=== PATIENT | male | born 1955 | race Two or more races ===

== ENCOUNTER 2024-09-11 09:12 | Emergency (ER) | payer MEDICARE, MEDICAID, SELFPAY ==
[2024-09-11 09:18] VITALS: BP 113/76; PULSE 63; RESP 16; TEMP 36.4; O2SAT 96; BMI 27.8
--- NOTE | 2024-09-11 09:38 | EDNOTE_ITS ---
ED Abdominal Pain RME/HPI General Chief Complaint: Abdominal Pain Stated complaint: ABD PAIN AND DIARRHEA Time seen by provider: 09/11/24 09:21 Arrival date/time: 09/11/24 09:12 69-year-old male with no known medical history presents to the emergency room with a chief complaint of lower abdominal cramping and diarrhea x 4 days. Source: patient Mode of arrival: ambulatory Limitations: no limitations Related Data Home Medications ?Medication ?Instructions ?Recorded ?Confirmed cetirizine 10 mg tablet (Zyrtec) 10 mg PO QDAY 2 06/30/21 Previous Rx's ?Medication ?Instructions ?Recorded triamcinolone acetonide 0.1 % 1 applic topical BID #60 mL 06/30/21 lotion triamcinolone acetonide 0.5 % 1 applic topical BID PRN itching 09/02/21 topical cream #30 grams cetirizine 10 mg capsule (Zyrtec) 10 mg PO QDAY #20 ca ps 06/24/22 Allergies Allergy/AdvReac Type Severity Reaction Status Date / Time No Known Allergies Allergy Verified 09/11/24 09:13 Review of Systems Review of Systems Systems Reviewed: All systems reviewed, normal except as documented Constitutional Constitutional: Reports system reviewed and no additional complaints, except as documented, Denies fatigue, Denies fever(s), Denies headache(s) and Denies weakness Eyes Eyes: Reports system reviewed and no additional complaints, except as d ocumented, Denies blurry vision and Denies change in vision ENT Ears, Nose, Mouth, and Throat: Reports system reviewed and no additional complaints, except as documented, Denies otalgia, Denies headache(s), Denies nasal congestion, Denies throat swelling and Denies vertigo Cardiovascular Cardiovascular: Reports system reviewed and no additional complaints, except as documented, Denies chest pain, Denies dyspnea and Denies dyspnea on exertion Respiratory Respiratory: Reports system reviewed and no additional complaints, except as documented, Denies chest congestion, Denies cough, Denies dyspnea, Denies dyspnea on exertion and Denies wheezing Gastrointestinal Gastrointestinal: Reports system reviewed and no additional complaints, except as documented, Reports abdominal pain, Reports cramping, Reports diarrhea, Denies nausea and Denies vomiting Genitourinary Genitourinary: Reports system reviewed and no additional complaints, except as documented, Denies dysuria and Denies hematuria Musculoskeletal Musculoskeletal: Reports system reviewed and no additional complaints, except as documented and Denies back pain Integumentary/Breasts Skin/Breast: Reports system reviewed and no additional complaints, except as documented and Denies wounds Neurologic Neurologic: Reports system reviewed and no additional complaints, except as documented, Denies confusion, Denies headache(s), Denies lack of coordination, Denies vertigo and Denies weakness Psychiatric Psychiatric: Reports system reviewed and no additional complaints, except as documented, Denies anxiety, Denies confusion, Denies depression, Denies paranoia, Denies suicidal ideation and Denies tactile hallucinations Endocrine Endocrine: Reports system reviewed and no additional complaints, except as documented and Denies fatigue Hematologic/Lymphatic Hematologic/Lymphatic: Reports system reviewed and no additional complaints, except as documented and Denies lymphadenopathy Allergic/Immunologic Allergic/Immunologic: Reports system reviewed and no additional complaints, except as documented, Denies throat swelling, Denies urticaria and Denies wheezing Past Medical History Past Medical History CARDIAC: Negative Congestive Heart Failure RESPIRATORY: Negative Chronic Obstructive Pulmonary Disease (COPD) GENITOURINARY: Negative Renal Disease ENDOCRINE: Negative Diabetes Mellitus Type 1 or Diabetes Mellitus Type 2 Social History SMOKING STATUS: Never smoker ED Exam General Limitations: Present no limitations General appearance: Present alert and in no apparent distress Head Head exam: Present atraumatic Eye Eye exam: Present normal appearance, PERRL and EOMI ENT ENT exam: Present normal exam, normal oropharynx and mucous membranes moist Neck Neck exam: Present normal inspection, full ROM and trachea midline Chest Chest inspection: Present normal inspection and symmetric chest wall rise Respiratory Respiratory exam: Present normal lung sounds bilaterally Cardiovascular Cardiovascular exam: Present regular rate, normal rhythm and normal heart sounds Abdominal Exam Abdominal exam: Present soft and normal bowel sounds; Absent distention, tenderness, guarding, rebound or rigidity Abdominal tenderness: Present mild; Absent RUQ, RLQ or LLQ Extremities Exam Extremities exam: Present normal inspection and full ROM Back Exam Back exam: Present normal inspection and full ROM Neurological Exam Neurological exam: Present alert, oriented X3 and CN II-XII intact Psychiatric Psychiatric exam: Present normal affect and normal mood Skin Skin exam: Present warm, dry, intact and normal color Course Quality Measures none Orders Category Date Time Status CBC Stat Lab 09/11/24 09:49 Completed CMP [Comprehensive Metabolic Panel] Stat Lab 09/11/24 09:49 Completed Lipase Stat Lab 09/11/24 09:49 Completed UA, C/S IF [Urinalysis, C/S if Indicated] Stat Lab 09/11/24 09:45 Completed Vital Signs Vital signs: Vital Signs Temperature 97.6 F 09/11/24 09:18 Pulse Rate 63 09/11/24 09:18 Respiratory Rate 16 09/11/24 09:18 Blood Pressure 113/76 09/11/24 09:18 Pulse Oximetry (%) 96 09/11/24 09:18 Oxygen Delivery Method Room Air 09/11/24 09:18 O2 saturation 96% within normal limit Abdominal Pain MDM MDM Narrative MDM Narrative:: 69-year-old male with no known medical history presents to the emergency room with a chief complaint of lower abdominal cramping and diarrhea x 4 days. Patient is hemodynamically stable and in no apparent distress. There is no tachycardia, tachypnea, and the patient is afebrile. Physical examination shows some mild abdominal cramping. Patient states this pain is due to his diarrhea that has been happening for the last 4 days. There is no right lower quadrant abdominal tenderness or right upper quadrant abdominal tenderness. CBC CMP are within normal limits. Urinalysis is within normal limits Patient was discharged and educated to follow-up with primary care provider in the next 24 to 48 hours and return to the emergency room for any evidence of worsening signs or symptoms Patient data External records reviewed:: [facility] previous records Clinical information provided by:: patient Social determinants that could affect healthcare access:: none Patient has the following chronic illnesses:: No chronic illness How is presenting disease/condition affected by chronic disease/condition?: no chronic disease Evaluation data The following diagnostics were reviewed and interpreted by me:: lab results and radiology exam(s) Lab and/or radiology exams considered but not ordered:: Labs and radiology exams considered and ordered Interpretation Summary: N/A Medications / Prescriptions Medications or Prescriptions considered but not ordered:: Medication not given Medication administrations:: Medication not given Consultations Consultation(s) initiated? (list below): No Diagnosis Differential diagnosis abdominal pain: abdominal pain and gastroenteritis Most likely diagnosis given after review of the tests above:: Gastroenteritis Admission Indicated Admission indicated?: not indicated Admission Request Was there a request for admission?: No Disposition Plan Disposition Plan: Discharge Discharge Attestation Discharge Attestation: The patient and all family members were given an opportunity to ask questions and understood the discharge instructions. Discharge instructions specifically effects, indications for sooner follow up or return to the emergency department, and the expected course of current diagnosis. Patient condition: Stable Discharge Plan Plan Patient Disposition: HOME (Self Care) Disposition Comment: Stable Prescriptions/Referrals Prescriptions/Med Rec: No Action triamcinolone acetonide 0.5 % cream 1 applic topical BID PRN (Reason: itching) Qty: 30 0RF triamcinolone acetonide 0.1 % lotion 1 applic topical BID Qty: 60 0RF cetirizine [Zyrtec] 10 mg Tablet 10 mg PO QDAY Zyrtec 10 mg capsule 10 mg PO QDAY Qty: 20 0RF Referrals: Jaci Valle MD [Primary Care Provider] - In 1 week Problem List Clinical Impression: Gastroenteritis Patient/Caregiver Discharge Instructions Education Materials: Understanding Colitis, ED Gastroenteritis, Noninfectious Additional Instructions: Por favor, consulte con huang m?dico de cabecera en las pr?ximas 24 a 48 horas. Huang an?lisis de betzaida carole negativo para cualquier infecci?n aguda o signos de deshidrataci?n. Por favor, consulte con huang m?dico de cabecera para el manejo de huang diarrea. Contin?e tomando la medicaci?n recetada por huang m?dico de cabecera. Si observa cualquier signo de empeoramiento de los signos o s?ntomas, acuda a urgencias de inmediato. Print Language: Upper Sorbian Stand Alone Forms: Erika Award Info., Patient Portal Info Letter PA/MAINS AND SERVICE SUPERVISOR Supervising Physician PA/MAINS AND SERVICE SUPERVISOR Supervising Physician: Dr. Tomlinson
[2024-09-11 09:56] LABS: Basophils % (Auto) 1 % (0-2.5); Eosinophils # (Auto) 0.3 Thou/mm3 (0.0-0.5); Eosinophils % (Auto) 3 % (0-10); Hematocrit 40.3 % (41.0-53.0); Hemoglobin 13.6 g/dL (13.5-16.0); Immature Granulocytes % (Auto) 1 % (0-0); Immature Granulocytes Auto 0.05 Thou/mm3 (0.00-0.00); Lymphocytes % (Auto) 26 % (10-50); Mean Corpuscular HGB Conc 33.7 g/dl (31.0-37.0); Mean Corpuscular Hemoglobin 29.1 pg (25.0-35.0); Mean Corpuscular Volume 86 fL (80-100); Monocytes # (Auto) 0.7 Thou/mm3 (0.0-0.8); Monocytes % (Auto) 9 % (0-12); Neutrophils # (Auto) 4.7 Thou/mm3 (1.8-7.7); Neutrophils % (Auto) 61 % (37-80); Nucleated Red Blood Cell % 0 /100 WBC (0); Platelet Count 240 Thou/mm3 (140-440); RDW Standard Deviation 41.8 fL (35.1-43.9); Red Blood Count 4.68 Miln/mm3 (4.50-5.90); White Blood Count 7.7 Thou/mm3 (3.8-10.6)
[2024-09-11 10:07] LABS: Collection Type, Urine Clean Catch
[2024-09-11 10:30] LABS: Alanine Aminotransferase 23 U/L (10-49); Albumin, Serum 4.5 gm/dL (3.4-4.8); Albumin/Globulin Ratio 1.8 (1.2-2.2); Alkaline Phosphatase 42 U/L (46-116); Anion Gap 9 (7-16); Aspartate Amino Transferase 15 U/L (0-34); BUN/Creatinine Ratio 17 Ratio (12-20); Bilirubin,Total 0.7 mg/dL (0.3-1.2); Blood Urea Nitrogen 17 mg/dL (9-23); Calcium 9.6 mg/dL (8.3-10.6); Calcium (Corrected) 9.6 mg/dL (8.5-10.1); Carbon Dioxide 24.2 mMol/L (20.0-31.0); Chloride 108 mMol/L (98-107); Globulin 2.5 gm/dL (2.3-3.5); Glucose 94 mg/dL (74-106); Lipase 29 U/L (12-53); Osmolality,Calculated 282 (275-295); Sodium 141 mMol/L (136-145); eGFR > 60 See Note
[2024-09-11 11:09] LABS: Bilirubin,Urine Negative (Negative); Blood,Urine Negative (Negative); Clarity,Urine Clear (Clear/Hazy); Color,Urine Lt-Yellow (Lt Yel-Yel); Culture Indicated,Urine Not Indicated; Glucose, Urine Negative (Negative); Ketones,Urine Negative (Negative); Leukocyte Esterase,Urine Negative (Negative); Nitrite,Urine Negative (Negative); PH,Urine 5.5 (5.0-7.0); Protein,Urine Negative (Neg - Trace); RBC,Urine 2 /hpf (0-3); Specific Gravity,Urine 1.025 (1.001-1.035); Squamous Epithelial Cell,Urine < 1 /hpf (0-5); Uric Acid Crystals,Urine 1+; Urobilinogen,Urine Negative mg/dL (0.0-1.0); WBC,Urine < 1 /hpf (0-5)
[2024-09-11 11:23] VITALS: BP 113/77; PULSE 63; RESP 17; TEMP 36.5; O2SAT 97
== END 2024-09-11 11:26 | disposition home or self-care (01) ==
PROVIDERS: Nurse Practitioner Family; Emergency Provider Emergency Medicine; PCP Family Medicine
DX: K52.9 Noninfective gastroenteritis and colitis, unspecified (principal)
CPT/HCPCS: 36415; 80053; 81001; 83690; 85025; 99283

== ENCOUNTER 2025-02-11 07:42 | Emergency (ER) | payer MEDICARE, MEDICAID, SELFPAY ==
[2025-02-11 08:02] VITALS: BP 114/74; PULSE 65; RESP 16; TEMP 36.5; O2SAT 98; BMI 27.6
--- NOTE | 2025-02-11 08:18 | PD.EDRME ---
Rapid Medical Screening Exam E Arrival date/time: 02/11/25 07:42 This is a 69-year-old male that comes into the emergency room with complaints of pain with urination, difficulty urination, urgency, frequency, and oliguria. Patient states that he was visiting [place] recently and became very ill there. Patient was seen by And was told that he had some stones in his bladder. Patient was told that his prostate is actually in good shape per ultrasound that was done in [place]. Patient states that he was told he needed surgery to have the stones in his bladder removed. Patient denies past medical history. Patient denies fever, nausea, vomiting, diarrhea,. Patient complains of mild lower abdominal pain. Patient denies back pain. Patient states he was given some medicine to help with the pain but it did not help him. I have greeted and performed a focused initial assessment of this patient. Initial appropriate labs ordered at this time. A comprehensive ED assessment and evaluation of the patient and analysis of all test and completion of medical decision making process will be conducted by additional ED provider. Chief Complaint: Urogenital-Male Time Seen by Provider: 02/11/25 07:57 Vital signs: Vital Signs Temperature 97.7 F 02/11/25 08:02 Pulse Rate 65 02/11/25 08:02 Respiratory Rate 16 02/11/25 08:02 Blood Pressure 114/74 02/11/25 08:02 Pulse Oximetry (%) 98 02/11/25 08:02 Oxygen Delivery Method Room Air 02/11/25 08:02
[2025-02-11 08:49] LABS: Collection Type, Urine Voided
[2025-02-11 08:58] LABS: Basophils # (Auto) 0.0 Thou/mm3 (0.0-0.2); Basophils % (Auto) 1 % (0-2.5); Eosinophils # (Auto) 0.2 Thou/mm3 (0.0-0.5); Eosinophils % (Auto) 4 % (0-10); Hematocrit 41.1 % (41.0-53.0); Hemoglobin 13.6 g/dL (13.5-16.0); Immature Granulocytes Auto 0.02 Thou/mm3 (0.00-0.00); Lymphocytes # (Auto) 1.6 Thou/mm3 (1.0-4.8); Lymphocytes % (Auto) 30 % (10-50); Mean Corpuscular HGB Conc 33.1 g/dl (31.0-37.0); Mean Corpuscular Hemoglobin 28.9 pg (25.0-35.0); Mean Corpuscular Volume 87 fL (80-100); Monocytes # (Auto) 0.5 Thou/mm3 (0.0-0.8); Monocytes % (Auto) 8 % (0-12); Neutrophils # (Auto) 3.1 Thou/mm3 (1.8-7.7); Neutrophils % (Auto) 57 % (37-80); Nucleated Red Blood Cell # 0.00 Thou/mm3 (0.00-0.00); Nucleated Red Blood Cell % 0 /100 WBC (0); Platelet Count 240 Thou/mm3 (140-440); RDW Standard Deviation 43.5 fL (35.1-43.9); Red Blood Count 4.70 Miln/mm3 (4.50-5.90); White Blood Count 5.4 Thou/mm3 (3.8-10.6)
[2025-02-11 09:01] LABS: Bilirubin,Urine Negative (Negative); Blood,Urine Negative (Negative); Clarity,Urine Clear (Clear/Hazy); Color,Urine Lt-Yellow (Lt Yel-Yel); Culture Indicated,Urine Not Indicated; Glucose, Urine Negative (Negative); Ketones,Urine Negative (Negative); Leukocyte Esterase,Urine Negative (Negative); Nitrite,Urine Negative (Negative); PH,Urine 6.0 (5.0-7.0); Protein,Urine Negative (Neg - Trace); RBC,Urine 2 /hpf (0-3); Specific Gravity,Urine 1.019 (1.001-1.035); Squamous Epithelial Cell,Urine < 1 /hpf (0-5); Urobilinogen,Urine Negative mg/dL (0.0-1.0); WBC,Urine 3 /hpf (0-5)
[2025-02-11 09:15] LABS: Alanine Aminotransferase 14 U/L (10-49); Albumin, Serum 4.2 gm/dL (3.4-4.8); Albumin/Globulin Ratio 2.1 (1.2-2.2); Alkaline Phosphatase 40 U/L (46-116); Anion Gap 9 (7-16); Aspartate Amino Transferase 19 U/L (0-34); BUN/Creatinine Ratio 16 Ratio (12-20); Bilirubin,Total 0.3 mg/dL (0.3-1.2); Blood Urea Nitrogen 16 mg/dL (9-23); Calcium 9.4 mg/dL (8.3-10.6); Calcium (Corrected) 9.4 mg/dL (8.5-10.1); Carbon Dioxide 23.6 mMol/L (20.0-31.0); Chloride 109 mMol/L (98-107); Creatinine (Component) 1.0 mg/dL (0.6-1.3); Estimated Creatinine Clearance 69.3 mL/min (>60); Globulin 2.0 gm/dL (2.3-3.5); Glucose 102 mg/dL (74-106); Osmolality,Calculated 284 (275-295); Potassium 4.1 mMol/L (3.4-5.1); Sodium 142 mMol/L (136-145); Total Protein 6.2 gm/dL (5.7-8.2); eGFR > 60 See Note
--- NOTE | 2025-02-11 09:38 | EDNOTE_ITS ---
<Statement entered by Bryanna Laughlin MD - 02/27/25 06:32> I, Bryanna Laughlin MD, have reviewed the history, exam, and assessment of the patient. I have evaluated the patient independently and agree with the plan of care documented by [ ]. All diagnostic studies were reviewed and discussed. I confirm the diagnosis as documented by the Resident. I was present during the Medical Decision Making for this patient. The patient's plan of care was created between myself and the Resident and consistent with our discussion of the patient's case. ED General RME/HPI General Chief complaint: Urogenital-Male Stated complaint: Urinating small amount Time Seen by Provider: 02/11/25 07:57 Arrival date/time: 02/11/25 07:42 RME / HPI RME / HPI narrative: 02/11/25 07:42 This is a 69-year-old male that comes into the emergency room with complaints of pain with urination, difficulty urination, urgency, frequency, and oliguria. Patient states that he was visiting [place] recently and became very ill there. Patient was seen by And was told that he had some stones in his bladder. Patient was told that his prostate is actually in good shape per ultrasound that was done in [place]. Patient states that he was told he needed surgery to have the stones in his bladder removed. Patient denies past medical history. Patient denies fever, nausea, vomiting, diarrhea,. Patient complains of mild lower abdominal pain. Patient denies back pain. Patient states he was given some medicine to help with the pain but it did not help him. I have greeted and performed a focused initial assessment of this patient. Initial appropriate labs ordered at this time. A comprehensive ED assessment and evaluation of the patient and analysis of all test and completion of medical decision making process will be conducted by additional ED provider. 69-year-old male with past medical history of COPD comes into the ED with chief complaints of urinary hesitancy along with urinary frequency and some difficulty with urination sometimes. Patient states that he went to [place] 1 week ago and he was diagnosed with bladder stones and an enlarged prostate by ultrasound, but did not get treatment in [place] and came back to the [place]. Otherwise he denies having any fevers, chills, burning sensation urination, or chest pain or shortness of breath. Denies any drugs, alcohol, admits smoking Related Data Home Medications ?Medication ?Instructions ?Recorded ?Confirmed cetirizine 10 mg tablet (Zyrtec) 10 mg PO QDAY 2 06/30/21 Previous Rx's ?Medication ?Instructions ?Recorded triamcinolone acetonide 0.1 % 1 applic topical BID #60 mL 06/30/21 lotion triamcinolone acetonide 0.5 % 1 applic topical BID PRN itching 09/02/21 topical cream #30 grams cetirizine 10 mg capsule (Zyrtec) 10 mg PO QDAY #20 ca ps 06/24/22 Allergies Allergy/AdvReac Type Severity Reaction Status Date / Time No Known Allergies Allergy Verified 02/11/25 07:51 Review of Systems Review of Systems Systems Reviewed: All systems reviewed, normal except as documented Past Medical History Past Medical History CARDIAC: Negative Congestive Heart Failure RESPIRATORY: Negative Chronic Obstructive Pulmonary Disease (COPD) GENITOURINARY: Negative Renal Disease ENDOCRINE: Negative Diabetes Mellitus Type 1 or Diabetes Mellitus Type 2 Social History SMOKING STATUS: Never smoker ED Exam Narrative Physical exam: Gen: A&O X 3, NAD HEENT: NCAT, EOMI, Pupils reactive KIMBER, not icteric. External ears normal. No rhinorrhea. Moist mucous membranes. Neck: Supple, full range of motion, no observable masses, No meningeal sign. Lungs: No Respiratory distress, clear bilateral. CV: RRR, no murmurs. Abdomen: Soft, nondistended, mild tenderness suprapubic, No rebound tenderness. MSK: No joint swelling, no redness, peripheral pulses presents, lumbar with no edema. Skin: No rashes, petechiae, lesions.. Neuro: No focal neurological deficits appreciated, sensory and motor intact. Psych: Cooperative, appropriate mood and effect. Course Quality Measures none Orders Category Date Time Status CBC Stat Lab 02/11/25 08:35 Completed Comprehensive Metabolic Panel Stat Lab 02/11/25 08:35 Completed Urinalysis, C/S if Indicated Stat Lab 02/11/25 08:38 Completed Vital Signs Vital signs: Vital Signs Temperature 97.7 F 02/11/25 08:02 Pulse Rate 65 02/11/25 08:02 Respiratory Rate 16 02/11/25 08:02 Blood Pressure 114/74 02/11/25 08:02 Pulse Oximetry (%) 98 02/11/25 08:02 Oxygen Delivery Method Room Air 02/11/25 08:02 Discharge Plan Plan Patient Disposition: HOME (Self Care) Prescriptions/Referrals Prescriptions/Med Rec: No Action triamcinolone acetonide 0.5 % cream 1 applic topical BID PRN (Reason: itching) Qty: 30 0RF triamcinolone acetonide 0.1 % lotion 1 applic topical BID Qty: 60 0RF cetirizine [Zyrtec] 10 mg Tablet 10 mg PO QDAY Zyrtec 10 mg capsule 10 mg PO QDAY Qty: 20 0RF Referrals: Augustine Balbuena MD [Primary Care Provider] - In 1 week Problem List Clinical Impression: Bladder stones Patient/Caregiver Discharge Instructions Other Activity Instructions:: Follow-up primary care physician within 2 or 3 days Follow-up with your urologist who you have an appointment already set up for Thursday You can take Tylenol every 6 hours as needed for pain for the next 2 or 3 days Come back to the ED if you develop oliguria or if you have worsening pain or develop any fevers, chills, nausea, or vomiting. Consulte con huang m?dico de cabecera en 2 o 3 d?as. Consulte con huang ur?logo, con quien ya tiene gavi programada para el . Puede nathalia Tylenol cada 6 horas seg?n sea necesario para el dolor ange los pr?ximos 2 o 3 d?as. Regrese a urgencias si presenta oliguria, si el dolor empeora o si presenta fiebre, escalofr?os, n?useas o v?mitos. Education Materials: Anatomy of the Male Urinary Tract, Understanding Bladder Stones Print Language: Maori Stand Alone Forms: Erika Award Info., Patient Portal Info Letter MDM Narrative MDM hospital course: Patient was seen and evaluated upon arrival to the room by myself. Diagnostic labs were reviewed and patient at this time did not have any signs of infection or CHUCK. Patient was able to void without any issues and there was no blood or signs of infection in the urine. Patient refused Aguilar placement. At this time patient stable enough to be discharged home with close follow-up with his urologist and primary care physician. Patient states that he has a follow-up visit with his primary care physician on Thursday. Patient agrees with plan. Case disclosed with Attending Dr. Qian Mckenna PGY2 Disclaimer: Even though this this note was dictated by speech recognition and even though it was carefully revised there may still be minor errors in single spindle screw machine operator due to voice recognition software.
[2025-02-11 09:52] VITALS: BP 114/86; PULSE 85; RESP 16; TEMP 36.6; O2SAT 99
== END 2025-02-11 09:53 | disposition home or self-care (01) ==
PROVIDERS: Nurse Practitioner Family; Emergency Provider Emergency Medicine; PCP Family Medicine
DX: N21.0 Calculus in bladder (principal)
CPT/HCPCS: 36415; 80053; 81001; 85025; 99283